=== PATIENT | female | born 1960 | race Caucasian/White ===

== ENCOUNTER → 2020-04-10 | Outpatient (CLI) | payer OTHER ==
[2020-04-10 12:59] LABS: ABSOLUTE EOSINOPHILS # (AUTO) 0.1 10^3/uL (0.0-0.6); ABSOLUTE MONOCYTES (AUTO) 0.5 10^3/uL (0.1-1.4); BASOPHILS % (AUTO) 0.5 % (0-2); EOSINOPHILS % (AUTO) 1.7 % (0-6); HEMOGLOBIN 14.7 g/dL (12.0-15.5); MEAN CORPUSCULAR HEMOGLOBIN 30.4 pg (27.0-33.4); MEAN CORPUSCULAR VOLUME 87 fl (80-97); MONOCYTES % (AUTO) 9.1 % (3-13); PLATELET COUNT 162 10^3/uL (150-450); RED BLOOD COUNT 4.84 10^6/uL (3.72-5.28); SEGMENTED NEUTROPHILS % (AUTO) 70.7 % (42-78); TOTAL CELLS COUNTED % (AUTO) 100 %; WHITE BLOOD COUNT 5.7 10^3/uL (4.0-10.5)
[2020-04-10 13:11] LABS: APPEARANCE,URINE CLOUDY; BILIRUBIN,URINE NEGATIVE (NEGATIVE); CALCIUM OXALATE CRYSTALS,URINE TOO NUMEROUS TO CNT /HPF; COLOR,URINE AMBER; GLUCOSE, URINE NEGATIVE (NEGATIVE); KETONES,URINE TRACE mg/dL (NEGATIVE); LEUKOCYTE ESTERASE,URINE NEGATIVE (NEGATIVE); NITRITE,URINE NEGATIVE (NEGATIVE); PROTEIN,URINE 30 mg/dL (NEGATIVE); URINE SPECIFIC GRAVITY 1.031
[2020-04-10 13:32] LABS: ALBUMIN 4.5 g/dL (3.5-5.0); ANION GAP 10 (5-19); BLOOD UREA NITROGEN 26 mg/dL (7-20); CALCIUM 9.6 mg/dL (8.4-10.2); CARBON DIOXIDE 25 mmol/L (22-30); CHLORIDE 104 mmol/L (98-107); GLUCOSE 102 mg/dL (75-110); POTASSIUM 4.5 mmol/L (3.6-5.0)
[2020-04-10 13:37] LABS: C-REACTIVE PROTEIN < 5.0 mg/L (<10.0)
[2020-04-10 13:41] LABS: ERYTHROCYTE SEDIMENTATION RATE 9 mm/hr (0-30)
--- NOTE | 2020-04-10 13:52 | RADIOLOGY REPORT (SQ) ---
EXAM DESCRIPTION: CHEST PA/LATERAL IMAGES COMPLETED DATE/TIME: 04/10/2020 12:46 pm REASON FOR STUDY: ENCOUNTER FOR PREPROCEDURAL RESPIRATORY EXAMINATION COMPARISON: None. EXAM PARAMETERS: NUMBER OF VIEWS: two views TECHNIQUE: Digital Frontal and Lateral radiographic views of the chest acquired. RADIATION DOSE: NA LIMITATIONS: none FINDINGS: LUNGS AND PLEURA: Scattered calcified granulomas. No acute infiltrate, effusion, or mass. MEDIASTINUM AND HILAR STRUCTURES: No masses or contour abnormalities. HEART AND VASCULAR STRUCTURES: Heart normal size. No evidence for failure. BONES: No acute findings. HARDWARE: None in the chest. OTHER: No other significant finding. IMPRESSION: NO SIGNIFICANT RADIOGRAPHIC FINDING IN THE CHEST. TECHNICAL DOCUMENTATION: JOB ID: [id number] 2010 [employer]- All Rights Reserved Reading location - IP/workstation name: [email or web address]
--- NOTE | 2020-04-10 21:33 | EKG REPORT ---
SEVERITY:- OTHERWISE NORMAL ECG - SINUS RHYTHM VENTRICULAR PREMATURE COMPLEX : Confirmed by: Allegra Molina MD 10-Apr-2020 21:32:41
== END ==
LOC: OD 12:04
PROVIDERS: ATTEND Orthopaedic Surgery
DX: Z01.810 Encounter for preprocedural cardiovascular examination (principal); Z01.811 Encounter for preprocedural respiratory examination; Z01.812 Encounter for preprocedural laboratory examination
CPT/HCPCS: 36415; 71046; 80048; 81001; 82040; 82306; 83036; 85025; 85652; 86140; 93005; 93010

== ENCOUNTER 2020-05-07 05:30 | Observation (INO) | payer OTHER ==
[~2020-05-07 05:30] MED LIST: ACETAMINOPHEN 325 MG TABLET ONE; ACETAMINOPHEN 325 MG TABLET PO PRN; CEFAZOLIN 2 GM/D5W RTU 2 GM/50 ML RTUPB IV ONE; CELECOXIB 200 MG CAPSULE ONE; CELECOXIB 200 MG CAPSULE PO PRN; GABAPENTIN 100 MG CAPSULE ONE; GABAPENTIN 100 MG CAPSULE PO PRN; LACTATED RINGERS 1000 ML IV PRN; LIDOCAINE 0.5% INJ-PF (5 MG/ML) 50 ML SDV SUBCUT PRN; ONDANSETRON HCL INJ/PF 4 MG/2 ML SDV ONE; OXYCODONE HCL SR 10 MG TABLET PO ONE; OXYCODONE HCL SR 10 MG TABLET PO PRN; PANTOPRAZOLE SODIUM 20 MG TABLET.DR PO ONE; PANTOPRAZOLE SODIUM 20 MG TABLET.DR PO PRN; SCOPOLAMINE HYDROBROMIDE 1.5 MG PATCH.TD72 ONE; SCOPOLAMINE HYDROBROMIDE 1.5 MG PATCH.TD72 TD PRN; TRANEXAMIC ACID INJ/PF 1,000 MG/10 ML SDV IV PRN; VANCOMYCIN HCL 1,000 MG in DEXTROSE 5%-WATER 250 ML IV PRN
[2020-05-07] MEDS ORDERED: KETOROLAC TROMETHAMINE 60 MG/2 ML SDV ONE (06:24)
[2020-05-07] MEDS ORDERED: EPHEDRINE SULFATE INJ 50 MG/1 ML AMPULE ONE (06:24)
[2020-05-07] MEDS ORDERED: MIDAZOLAM 2 MG/2 ML INJ ONE (06:24)
[2020-05-07] MEDS ORDERED: ONDANSETRON HCL INJ/PF 4 MG/2 ML SDV ONE (06:24)
[2020-05-07] MEDS ORDERED: KETAMINE HCL INJ 500 MG/10 ML VIAL ONE (06:24)
[2020-05-07] MEDS ORDERED: DEXAMETHASONE SOD PHOSPHATE INJ 4 MG/1 ML VIAL ONE (06:24)
[2020-05-07] MEDS ORDERED: FENTANYL CITRATE INJ/PF 100 MCG/2 ML AMPUL ONE (06:24)
[2020-05-07] MEDS ORDERED: TRANEXAMIC ACID INJ/PF 1,000 MG/10 ML SDV ONE ×2 (06:25→07:12)
[2020-05-07] MEDS ORDERED: PROPOFOL INJ 200 MG/20 ML VIAL IV ONE (06:25)
[2020-05-07 06:31] LABS: INTERNATIONAL RATION (INR) 1.05; PROTHROMBIN TIME 13.9 SEC (11.4-15.4)
[2020-05-07 06:32] LABS: PARTIAL THROMBOPLASTIN TIME 27.6 SEC (23.5-35.8)
[2020-05-07] MEDS ORDERED: BUPIVACAINE HCL 0.25 % INJ/PF (2.5 MG/1 ML) 30 ML VIAL ONE (07:08)
[2020-05-07] MEDS ORDERED: LIDOCAINE 1% INJ-PF (10 MG/ML) 30 ML SDV ONE (07:09)
[2020-05-07] MEDS ORDERED: KETOROLAC TROMETHAMINE INJ/PF 30 MG/1 ML SDV ONE (07:09)
[2020-05-07] MEDS ORDERED: VANCOMYCIN HCL INJ 1000 MG VIAL ONE (07:09)
[2020-05-07] MEDS ORDERED: ZOLPIDEM TARTRATE 5 MG TABLET PO PRN (07:33)
[2020-05-07] MEDS ORDERED: DEXAMETHASONE SOD PHOS INJ 10 MG/1 ML VIAL IV ONE (07:33)
[2020-05-07] MEDS ORDERED: TRANEXAMIC ACID INJ/PF 1,000 MG/10 ML SDV IV ONE (07:33)
[2020-05-07] MEDS ORDERED: NORMAL SALINE 1000 ML 1,000 ML IV ONE (07:33)
[2020-05-07] MEDS ORDERED: PANTOPRAZOLE SODIUM 20 MG TABLET.DR PO ONE (07:33)
[2020-05-07] MEDS ORDERED: OXYCODONE HCL IR 5 MG TABLET PO PRN ×4 (07:33)
[2020-05-07] MEDS ORDERED: DOCUSATE SODIUM 100 MG CAPSULE PO PRN (07:33)
[2020-05-07] MEDS ORDERED: MORPHINE SULFATE 10 MG/ML INJ IV PRN ×3 (07:33→08:06)
[2020-05-07] MEDS ORDERED: TRAMADOL HCL 50 MG TABLET PO PRN (07:33)
[2020-05-07] MEDS ORDERED: ONDANSETRON 4 MG TAB.RAPDIS PO PRN (07:33)
[2020-05-07] MEDS ORDERED: DIPHENHYDRAMINE HCL 25 MG CAPSULE PO PRN (07:33)
[2020-05-07] MEDS ORDERED: MEPERIDINE HCL/PF INJ 25 MG/1 ML DISP.SYRIN IV PRN (08:06)
[2020-05-07] MEDS ORDERED: ONDANSETRON HCL INJ/PF 4 MG/2 ML SDV IV PRN (08:06)
[2020-05-07] MEDS ORDERED: DIPHENHYDRAMINE HCL 50 MG/ML VIAL IV PRN (08:06)
[2020-05-07] MEDS ORDERED: FENTANYL CITRATE INJ/PF 100 MCG/2 ML AMPUL IV PRN ×3 (08:06)
[2020-05-07] MEDS ORDERED: PROMETHAZINE HCL INJ 25 MG/1 ML VIAL IV PRN (08:06)
--- NOTE | 2020-05-07 09:51 | Operative Report ---
Operative Report DATE OF SURGERY: 05/07/20 PREOPERATIVE DIAGNOSIS: Severe primary right hip osteoarthritis POSTOPERATIVE DIAGNOSIS: Severe primary right hip osteoarthritis OPERATION: Right total hip arthroplasty SURGEON: JOHANN HENDRICKSON JR ANESTHESIA: Spinal COMPLICATIONS: None ESTIMATED BLOOD LOSS: 600 PROCEDURE: Implants: [employer] afit size 11 femoral stem with high offset, a R3 size 54 cup, and a standard 36 mm liner, a 0 neck length 36 mm ceramic head OPERATIVE PROCEDURE: Patient was brought to the operating room on and underwent spinal anesthesia. 2 grams of Ancef and 1 g of vancomycin was given. After proper anesthesia was obtained, patient was positioned, padded, prepped, and draped in the usual sterile fashion on the operating room table. Appropriate time out was performed. An anterior approach to the hip was undertaken with meticulous hemostasis through the deep interval. A capsulectomy was performed followed by exposure of the femoral neck. The femoral neck was cut in line with the femoral broach and the femoral head was removed. Due to the severity of the osteoarthritis with significant osteophyte formation about the femoral neck into the greater trochanteric region the saddle was difficult to identify and the initial neck cut was high. There was substantial osteophyte formation about the acetabulum both anteriorly and inferiorly primarily. The acetabulum was then exposed with three retractors in an atraumatic fashion. Soft tissue and osteophytes were removed from the cotyloid fossa. Medialization reaming was performed followed by anatomic reaming of the acetabulum. Wound was irrigated with dilute betadyne solution and the 54 mm acetabulum was impacted into correct position and stability checked by manipulating the impaction handle which rocked the pelvis. A standard 36 liner was impacted into the shell with good stability. There was considerable peripheral osteophytes about the acetabulum and extending over the periphery of the impacted cup. These were carefully removed with an osteotome, mallet and rongeur and Bovie cautery. Attention was then directed toward the femur, which was exposed with two retractors in an atraumatic fashion. A bone hook was placed to carefully perform releases along the superior capsule until the femur was safely delivered through the wound. A paperboard box maker was utilized followed by lateralization rasping and then broaching up to a stable, filled proximal femur. Due to the slightly high neck cut, we did proceed to calcar reamed down to the level of the trial. With a lateral offset neck and a 0 head, stability was good in flexion and extension with slightly long leg lengths on the right, and appropriate shuck test. Of note the patient has scoliosis resulting in coronal pelvic tilt as well as substantial arthritic changes of both the [place] femoral head and acetabulum that led to further shortening of the right leg preoperatively. The slight lengthening of the right leg with these trials in place represent her potential need of leg length. The final size 11 stem was impacted into a copiously irrigated femoral canal. The final size 0 head was impacted on a clean dry femoral taper. The hip was irrigated and reduced, further irrigation with antibiotic solution, betadine solution, then antibiotic solution. Bleeders were coagulated with bovie cautery. The fascia was then closed with number 2 barbed PDS; the subcutaneous tissue closed with 2-0 monocryl and then a running 3-0 monocryl subcuticular. A silver dressing was then applied followed by a negative pressure AVELLE which was placed due to her increased risk given her body habitus. All needle sponge and instrument counts were correct. Patient was awakened from sedation anesthesia and taken to recovery room in stable condition. The patient had substantial arthritis over what is regularly encountered as well as a BMI of 35.5 in conjunction with a weight loss of over 100 pounds in the last year which led to patulous increased soft tissue about the hip and belly region. This required increased preoperative planning, positioning, and careful retraction in order to obtain a good outcome. Due to the increased time and effort we are billing a 22 modifier.
[2020-05-07] MEDS ORDERED: (PENDING PHARMACY ID) (Brimonidine Tartrate [Alphagan P] 1 DROP) OS SCH (10:00)
[2020-05-07] MEDS ORDERED: CELECOXIB 200 MG CAPSULE PO SCH (10:00)
[2020-05-07] MEDS: METOPROLOL SUCCINATE 25 MG TAB.SR.24H PO SCH (11:26)
[2020-05-07] MEDS: MULTIVITAMIN TABLET PO SCH (11:27)
[2020-05-07] MEDS: ACETAMINOPHEN 325 MG TABLET PO SCH ×3 (11:27→23:30)
[2020-05-07] MEDS: GABAPENTIN 100 MG CAPSULE PO SCH ×2 (11:27→21:53)
[2020-05-07] MEDS: ASPIRIN 325 MG TABLET PO SCH (11:27)
[2020-05-07] MEDS: POLYETHYLENE GLYCOL 3350 POWDER 17 GM/1 PACKET PO SCH (11:28)
--- NOTE | 2020-05-07 12:18 | RADIOLOGY REPORT (SQ) ---
EXAM DESCRIPTION: NO CHG FLUORO; HIP IN OPERATING RM IMAGES COMPLETED DATE/TIME: 05/07/2020 11:26 am REASON FOR STUDY: RT HIP TOTAL ARTHROPLASTY ASSISTED WITH FLUORO IN OR COMPARISON: None. FLUOROSCOPY TIME: No recordable fluoro time 3 Images saved to PACS LIMITATIONS: None. PROCEDURE: Right total hip arthroplasty FINDINGS: Images from fluoro document the procedure. IMPRESSION: Right total hip arthroplasty of assisted with fluoro. Refer to operative note for furth er information. COMMENT: PQRS 6045F: Fluoroscopy time of the procedure is documented in the report. TECHNICAL DOCUMENTATION: JOB ID: [id number] 2010 [employer]- All Rights Reserved Reading location - IP/workstation name: [email or web address]
--- NOTE | 2020-05-07 12:18 | RADIOLOGY REPORT (SQ) ---
EXAM DESCRIPTION: NO CHG FLUORO; HIP IN OPERATING RM IMAGES COMPLETED DATE/TIME: 05/07/2020 11:26 am REASON FOR STUDY: RT HIP TOTAL ARTHROPLASTY ASSISTED WITH FLUORO IN OR COMPARISON: None. FLUOROSCOPY TIME: No recordable fluoro time 3 Images saved to PACS LIMITATIONS: None. PROCEDURE: Right total hip arthroplasty FINDINGS: Images from fluoro document the procedure. IMPRESSION: Right total hip arthroplasty of assisted with fluoro. Refer to operative note for furth er information. COMMENT: PQRS 6045F: Fluoroscopy time of the procedure is documented in the report. TECHNICAL DOCUMENTATION: JOB ID: [id number] 2010 [employer]- All Rights Reserved Reading location - IP/workstation name: [email or web address]
--- NOTE | 2020-05-07 12:25 | RADIOLOGY REPORT (SQ) ---
EXAM DESCRIPTION: HIP RIGHT AP/LATERAL IMAGES COMPLETED DATE/TIME: 05/07/2020 10:40 am REASON FOR STUDY: post op M16.11 UNILATERAL PRIMARY OSTEOARTHRITIS, RIGHT HIP COMPARISON: None. NUMBER OF VIEWS: Two views. TECHNIQUE: AP pelvis and additional frog legview of the right hip. LIMITATIONS: None. FINDINGS: MINERALIZATION: Normal. RIGHT HIP: Total hip arthroplasty in good position. No acute fracture or dislocation. LEFT HIP: Total hip arthroplasty in good position. No acute fracture or dislocation. PUBIS AND ISCHIUM: No fracture. PELVIS: No fracture. SACRUM: No fracture or dislocation. No worrisome bone lesions. LOWER LUMBAR SPINE: Not included SOFT TISSUES: No findings. OTHER: No other significant finding. IMPRESSION: Right total hip arthroplasty in good position. No acute finding. TECHNICAL DOCUMENTATION: JOB ID: [id number] 2010 [employer]- All Rights Reserved Reading location - IP/workstation name: [email or web address]
[2020-05-07] MEDS ORDERED: PHENYLEPHRINE HCL INJ/PF 10 MG/1 ML SDV ONE (13:21)
[2020-05-07] MEDS ORDERED: GLYCOPYRROLATE 1 MG/5 ML VIAL ONE (13:21)
[2020-05-07] MEDS ORDERED: NORMAL SALINE INJ/PF 0.9% 10 ML SDV ONE (13:21)
[2020-05-07] MEDS ORDERED: CEFAZOLIN 2 GM/D5W RTU 2 GM/50 ML RTUPB IV SCH (14:00)
[2020-05-07] MEDS: KETOROLAC TROMETHAMINE INJ/PF 30 MG/1 ML SDV IV SCH ×2 (14:50→21:53)
[2020-05-07] MEDS: CEFAZOLIN SODIUM 2 GM in DEXTROSE 5%-WATER 100 ML IV SCH ×2 (14:50→21:52)
[2020-05-08] MEDS: ACETAMINOPHEN 325 MG TABLET PO SCH ×2 (05:42→12:29)
[2020-05-08] MEDS: KETOROLAC TROMETHAMINE INJ/PF 30 MG/1 ML SDV IV SCH (05:42)
--- NOTE | 2020-05-08 08:12 | PDOC PROGRESS REPORT ---
Subjective Progress Note for:: 05/08/20 Subjective:: Patient is doing well this AM. No acute events overnight. No new events. Pain well controlled. Ambulating well with PT. Reason For Visit: RIGHT HIP PRIMARY OSTEOARTHRITIS Physical Exam Vital Signs: Temp Pulse Resp BP Pulse Ox 98.4 F 76 16 94/64 L 100 05/08/20 00:09 05/08/20 00:09 05/08/20 00:09 05/08/20 00:09 05/08/20 00:09 Intake & Output 05/07/20 05/08/20 05/09/20 06:59 06:59 06:59 Intake Total 0 5179 Output Total 650 Balance 0 4529 Weight 106 kg 112.4 kg Physical Exam: NAD, AOX3 Right lower extremity -Pulses 2+ distally -Compartments soft -Sensation grossly intact to L3-4-5 S1 -Motor grossly intact to EHL TA gastroc and quad - Wound clean, dry, intact. Vac holding seal well. Results Impressions: Fluoroscopy 05/07/20 00:00 IMPRESSION: Right total hip arthroplasty of assisted with fluoro. Refer to operative note for further information. Hip X-Ray 05/07/20 00:00 IMPRESSION: Right total hip arthroplasty of assisted with fluoro. Refer to operative note for further information. Hip/Pelvis X-Ray 05/07/20 07:34 IMPRESSION: Right total hip arthroplasty in good position. No acute finding. Assessment & Plan - Diagnosis (1) History of right hip replacement Is this a current diagnosis for this admission?: Yes Plan: - 2 doses of Ancef postoperatively q 8 hours to complete 24 hours perioperatively -Weightbearing as tolerated, no precautions, encourage out of bed ROSY for ADL training - PT/OT - Keep knee extended in bed, rolled towel under the ankle to obtain full extension -aspirin 325 daily for DVT prophylaxis for 6 weeks -multimodal pain management to avoid excessive narcotics, including gabapentin, tramadol, Toradol, acetaminophen. -Dressing should not be removed for 7 to 10 days until seen in the office -May shower with the dressing intact, if it starts to come off she should not get the incision wet. -Follow-up with Dr. Santiago Zhang, orthopedic surgeon at [facility] for surgery, in 10 days. Call for an appointment. . [email or web address], [place] [id number] - Time Time Spent with patient: Less than 15 minutes
[2020-05-08] MEDS: MULTIVITAMIN TABLET PO SCH (10:12)
[2020-05-08] MEDS: GABAPENTIN 100 MG CAPSULE PO SCH (10:12)
[2020-05-08] MEDS: ASPIRIN 325 MG TABLET PO SCH (10:12)
[2020-05-08] MEDS: POLYETHYLENE GLYCOL 3350 POWDER 17 GM/1 PACKET PO SCH (10:15)
[2020-05-08] MEDS: METOPROLOL SUCCINATE 25 MG TAB.SR.24H PO SCH (10:15)
[2020-05-08 12:45] VITALS: BP 100/64
[2020-05-09] MEDS ORDERED: CELECOXIB 200 MG CAPSULE PO SCH (10:00)
--- NOTE | 2020-05-15 07:37 | Discharge Summary ---
Discharge Summary (SDC) - Discharge Final Diagnosis: RIght hip primary osteoarthritis Date of Surgery: 05/07/20 Discharge Date: 05/08/20 Condition: Stable Forms: Discharge POC-Adult Treatment or Instructions: Full details of postoperative instructions have been provided to the patient in the clinic. Additionally they should maintain their bandage in place for 10 days, and then changed to a dry dressing. They can take showers with this occlusive dressing but any further dressing should also be occlusive. No showers with the wound unprotected until cleared by me in the clinic. The patient was provided with a negative pressure wound dressing. They are to try to leave this in place however if it is removed she can return to my office for evaluation and bandage change. This dressing can be reinforced with peripheral Tegaderms. Additionally if the battery runs out new batteries can be applied. This should last through her next visit. She has no restrictions in regards to activity, aside from operating motor vehicles. Follow-up with Dr. Santiago Hendrickson, orthopedic surgeon at [facility] for surgery, in 10 days. Call for an appointment. . [address], [place] [address] Referrals: SANTIAGO HENDRICKSON JR, [ACTIVE PROVISIONAL STAFF] - 05/19/20 10:30 am Discharge Diet: As Tolerated Respiratory Treatments at Home: Deep Breathing/Coughing Discharge Activity: Activity As Tolerated, No Driving, Keep Legs Elevated, Slow ly Increase Activity, No tub bath, Walk Frequently Home Care Assistance: None Needed Adaptive Devices on Discharge: Rolling Walker, Bedside Commode Report the Following to Your Physician Immediately: Shortness of Breath, Fever over 101 Degrees, Unusual Bleeding, Drainage-Yellow, Drainage-Quintana, Drainage- Green, Drainage-Foul Smelling, IV Site Infection Signs
== END 2020-05-08 12:44 | disposition home or self-care (01) ==
LOC: OROUT 05:30 → INOR 07:33 → 4S 10:45
PROVIDERS: ADMIT Orthopaedic Surgery; ATTEND Orthopaedic Surgery
DX: M16.11 Unilateral primary osteoarthritis, right hip (principal); Z03.818 Encounter for observation for suspected exposure to other biological agents ruled out; I10 Essential (primary) hypertension; K21.9 Gastro-esophageal reflux disease without esophagitis; Z79.899 Other long term (current) drug therapy; Z79.82 Long term (current) use of aspirin; Z96.642 Presence of left artificial hip joint; Z96.652 Presence of left artificial knee joint; Z79.01 Long term (current) use of anticoagulants
CPT/HCPCS: 86900; 86901; 36415 ×2; 86850; 85610; 85730; 87635; 87070; 73502; 73501; 97530; 97110 ×2; 97116 ×2; 97162; 97535; 97166; 01214; 27130; G0378 ×2; C1776 ×4; J2250; J0690 ×2; J1100; J3490 ×10; J1885 ×3; J3010; J2370; J2405; J7060 ×2; J2704; J3370; C9803